=== PATIENT | male | born 1935 | race African-American/Black ===

== ENCOUNTER 2021-07-24 17:56 | Inpatient (IN) | payer MEDICARE, MEDICAID ==
[~2021-07-24] VITALS: Ht 188 cm; Wt 68.2 kg
[2021-07-24 20:07] LABS: HEMATOCRIT. 38.7 % (42.0-52.0); HEMOGLOBIN. 12.9 g/dL (14.0-18.0); MEAN CORPUSCULAR HEMOGLOBIN 33.8 pg (28.0-32.0); MEAN CORPUSCULAR VOLUME 100.8 fL (80.0-94.0); MEAN PLATELET VOLUME 9.9 fl (7.4-10.4); PLATELET 170 x1000/uL (130-400); RED BLOOD CELL COUNT 3.83 mill/uL (4.7-6.1); RED CELL DISTRIBUTION WIDTH 13.2 % (11.6-14.6)
[2021-07-24 20:08] LABS: CHLORIDE 102 mEq/L (98-107)
[2021-07-24 20:42] LABS: PLATELET ESTIMATE NORMAL
[2021-07-25] MEDS ORDERED: CEFTRIAXONE 1 G PREMIX 50 ML IV ONE (01:15)
[2021-07-25] MEDS ORDERED: MAGNESIUM/ALUMINUM HYDROXIDE/SIMETHICONE 30ML UDC PO PRN (03:15)
[2021-07-25] MEDS ORDERED: DOCUSATE SODIUM 100MG CAPSULE PO PRN (03:15)
[2021-07-25] MEDS ORDERED: ONDANSETRON HCL 4MG/2ML INJ IV PRN (03:15)
[2021-07-25] MEDS ORDERED: CLONIDINE 0.1MG TABLET PO PRN (03:15)
[2021-07-25] MEDS ORDERED: HYDROCODONE/ACETAMINOPHEN 5/325MG TABLET PO PRN (03:15)
[2021-07-25] MEDS ORDERED: NALOXONE HCL 0.4 MG/ML 1ML VIAL IV PRN (03:30)
[2021-07-25] MEDS: AMLODIPINE 10MG TABLET PO SCH ×2 (03:40→09:00)
[2021-07-25] MEDS: SODIUM CHLORIDE 0.45% 1,000 ML IV SCH ×2 (03:40→15:10)
[2021-07-25 09:00] VITALS: BP 128/89
[2021-07-25] MEDS: METOPROLOL TARTRATE 25MG TABLET PO SCH ×2 (09:00→22:11)
[2021-07-25] MEDS: TAMSULOSIN HCL 0.4MG SR CAPSULE PO SCH (09:45)
[2021-07-25 10:19] VITALS: BP 128/89
[2021-07-25 12:00] VITALS: BP 129/80
[2021-07-25] MEDS: FINASTERIDE 5MG TABLET PO SCH (15:05)
[2021-07-25 15:31] LABS: HEMOGLOBIN. 12.7 g/dL (14.0-18.0); MEAN CORPUSCULAR HEMOGLOBIN 32.9 pg (28.0-32.0); MEAN CORPUSCULAR VOLUME 100.8 fL (80.0-94.0); PLATELET 142 x1000/uL (130-400); RED BLOOD CELL COUNT 3.87 mill/uL (4.7-6.1)
[2021-07-25 16:00] VITALS: BP 117/77
[2021-07-25 16:00] LABS: PLATELET ESTIMATE NORMAL
[2021-07-25] MEDS ORDERED: DILTIAZEM HCL 5MG/ML 5ML VIAL IV NR (18:00)
[2021-07-25] MEDS ORDERED: DILTIAZEM HCL 30MG TABLET PO PRN (18:00)
[2021-07-25 20:00] VITALS: BP 113/73
[2021-07-26] VITALS (7 sets, daily range): BP systolic 98–122; BP diastolic 55–84
[2021-07-26] MEDS ORDERED: CEFTRIAXONE 1,000 MG in DEXTROSE 5% WATER 50 ML IV SCH
[2021-07-26] MEDS: ACETAMINOPHEN 325MG TABLET PO PRN (04:24)
[2021-07-26] MEDS: SODIUM CHLORIDE 0.45% 1,000 ML IV SCH (05:59)
[2021-07-26 06:20] LABS: HEMATOCRIT. 38.1 % (42.0-52.0); HEMOGLOBIN. 12.6 g/dL (14.0-18.0); MEAN CORPUSCULAR HEMOGLOBIN 33.8 pg (28.0-32.0); MEAN CORPUSCULAR VOLUME 102.6 fL (80.0-94.0); MEAN PLATELET VOLUME 10.5 fl (7.4-10.4); PLATELET 136 x1000/uL (130-400); RED BLOOD CELL COUNT 3.71 mill/uL (4.7-6.1); RED CELL DISTRIBUTION WIDTH 13.3 % (11.6-14.6)
[2021-07-26 06:27] LABS: CHLORIDE 101 mEq/L (98-107)
[2021-07-26] MEDS: AMLODIPINE 10MG TABLET PO SCH (09:00)
[2021-07-26] MEDS: METOPROLOL TARTRATE 25MG TABLET PO SCH (09:00)
[2021-07-26] MEDS: FINASTERIDE 5MG TABLET PO SCH (09:06)
[2021-07-26] MEDS: TAMSULOSIN HCL 0.4MG SR CAPSULE PO SCH (09:21)
[2021-07-26] MEDS ORDERED: SODIUM CHLORIDE 0.9% 500 ML IV ONE (09:45)
[2021-07-26] MEDS: SODIUM CHLORIDE 0.9% 1,000 ML IV SCH ×2 (09:51→20:09)
[2021-07-26] MEDS ORDERED: DIGOXIN 500MCG/2ML AMP IV NR (11:15)
[2021-07-26 15:56] LABS: PLATELET ESTIMATE NORMAL
[2021-07-26] MEDS: METOPROLOL TARTRATE 50MG TABLET PO SCH (22:09)
[2021-07-26] MEDS: CEFTRIAXONE 1,000 MG in DEXTROSE 5% WATER 50 ML IV SCH (22:31)
[2021-07-27] VITALS: BP 85/58
[2021-07-27 04:00] VITALS: BP 104/67
[2021-07-27] MEDS: SODIUM CHLORIDE 0.9% 1,000 ML IV SCH ×2 (05:38→16:06)
[2021-07-27 06:24] LABS: BASOPHILS % 0.2 % (0.0-2.0); EOSINOPHILS % 0.5 % (0.0-5.0); HEMATOCRIT. 34.5 % (42.0-52.0); HEMOGLOBIN. 11.9 g/dL (14.0-18.0); MEAN CORPUSCULAR HEMOGLOBIN 34.8 pg (28.0-32.0); MEAN CORPUSCULAR VOLUME 100.9 fL (80.0-94.0); MEAN PLATELET VOLUME 10.2 fl (7.4-10.4); MONOCYTES % 12.2 % (2.0-8.0); NEUTROPHILS % 76.1 % (40.0-76.0); PLATELET 125 x1000/uL (130-400); RED BLOOD CELL COUNT 3.42 mill/uL (4.7-6.1); RED CELL DISTRIBUTION WIDTH 12.7 % (11.6-14.6)
[2021-07-27 06:35] LABS: CHLORIDE 103 mEq/L (98-107)
[2021-07-27 06:42] LABS: PHOSPHORUS 1.6 mg/dL (2.5-4.9)
[2021-07-27 08:00] VITALS: BP 98/49
[2021-07-27] MEDS ORDERED: POTASSIUM CHLORIDE 20MEQ TABLET SR PO SCH (08:00)
[2021-07-27] MEDS: METOPROLOL TARTRATE 50MG TABLET PO SCH (09:00)
[2021-07-27] MEDS: TAMSULOSIN HCL 0.4MG SR CAPSULE PO SCH (09:09)
[2021-07-27] MEDS: FINASTERIDE 5MG TABLET PO SCH (09:09)
[2021-07-27] MEDS: POTASSIUM-SODIUM PHOSPHATE POWDER PACKET PO SCH ×2 (09:15→16:43)
[2021-07-27] MEDS ORDERED: SODIUM CHLORIDE 0.9% 500 ML IV ONE (09:45)
[2021-07-27] MEDS ORDERED: POTASSIUM PHOS,M-BASIC-D-BASIC 15 MMOL in DEXT 5% WATER 245 ML IV NR (12:30)
[2021-07-27] MEDS: VERAPAMIL HCL 80 MG TABLET PO SCH ×3 (14:00→21:35)
[2021-07-27 16:00] VITALS: BP 95/69
[2021-07-27] MEDS: ACETAMINOPHEN 325MG TABLET PO PRN (16:42)
[2021-07-27 20:00] VITALS: BP 104/64
[2021-07-27] MEDS: CEFTRIAXONE 1,000 MG in DEXTROSE 5% WATER 50 ML IV SCH (21:34)
[2021-07-28] VITALS: BP 102/66
[2021-07-28] MEDS: SODIUM CHLORIDE 0.9% 1,000 ML IV SCH (00:36)
[2021-07-28 04:00] VITALS: BP 116/68
[2021-07-28] MEDS: VERAPAMIL HCL 80 MG TABLET PO SCH (06:00)
[2021-07-28 06:37] LABS: BASOPHILS % 0.3 % (0.0-2.0); EOSINOPHILS % 2.6 % (0.0-5.0); HEMATOCRIT. 34.9 % (42.0-52.0); HEMOGLOBIN. 11.9 g/dL (14.0-18.0); LYMPHOCYTES % 20.8 % (20.0-50.0); MEAN CORPUSCULAR HEMOGLOBIN 34.6 pg (28.0-32.0); MEAN CORPUSCULAR VOLUME 101.6 fL (80.0-94.0); MEAN PLATELET VOLUME 10.4 fl (7.4-10.4); MONOCYTES % 13.6 % (2.0-8.0); NEUTROPHILS % 62.7 % (40.0-76.0); PLATELET 142 x1000/uL (130-400); RED BLOOD CELL COUNT 3.44 mill/uL (4.7-6.1); RED CELL DISTRIBUTION WIDTH 12.4 % (11.6-14.6)
[2021-07-28 07:17] LABS: CHLORIDE 105 mEq/L (98-107)
[2021-07-28 07:29] LABS: PHOSPHORUS 2.2 mg/dL (2.5-4.9)
[2021-07-28 08:00] VITALS: BP 97/70
[2021-07-28] MEDS: POTASSIUM-SODIUM PHOSPHATE POWDER PACKET PO SCH (09:48)
[2021-07-28] MEDS: FINASTERIDE 5MG TABLET PO SCH (09:48)
[2021-07-28] MEDS: TAMSULOSIN HCL 0.4MG SR CAPSULE PO SCH (09:48)
[2021-07-28] MEDS ORDERED: POTASSIUM CHLORIDE 20MEQ TABLET SR PO NR (10:15)
[2021-07-28] MEDS ORDERED: MAGNESIUM OXIDE 400MG TABLET PO SCH (10:15)
[2021-07-28 12:00] VITALS: BP 105/77
[2021-07-28] MEDS ORDERED: MIDODRINE HCL 2.5MG TABLET PO SCH (12:00)
[2021-07-28] MEDS ORDERED: POTASSIUM-SODIUM PHOSPHATE POWDER PACKET PO NR (14:00)
[2021-07-28 14:50] VITALS: BP 105/77
== END 2021-07-28 16:00 | disposition home health service (06) | DRG 501 ==
LOC: ER 17:56 → 8WST 07-25 02:41 → ENRESERV 07-25 07:16
PROVIDERS: ADMIT Hospitalist; ATTEND Hospitalist
DX: N40.1 Benign prostatic hyperplasia with lower urinary tract symptoms (principal); N17.0 Acute kidney failure with tubular necrosis; R65.11 Systemic inflammatory response syndrome (SIRS) of non-infectious origin with acute organ dysfunction; I95.9 Hypotension, unspecified; E44.0 Moderate protein-calorie malnutrition; I47.1 Supraventricular tachycardia; N13.30 Unspecified hydronephrosis; I48.0 Paroxysmal atrial fibrillation; N32.89 Other specified disorders of bladder; N13.8 Other obstructive and reflux uropathy; D64.9 Anemia, unspecified; R33.8 Other retention of urine; E78.5 Hyperlipidemia, unspecified; K57.30 Diverticulosis of large intestine without perforation or abscess without bleeding; I10 Essential (primary) hypertension; R73.9 Hyperglycemia, unspecified; R74.01 Elevation of levels of liver transaminase levels; R31.9 Hematuria, unspecified; Z82.49 Family history of ischemic heart disease and other diseases of the circulatory system; Z68.1 Body mass index [BMI] 19.9 or less, adult
CPT/HCPCS: 36415; 74176; 80053; 83036; 83735; 84100; 84443; 85025; 86850; 86900; 93306; 93970; 99291; J0696; J1160; J3490; J7030; J7040; J7060

== ENCOUNTER 2021-09-01 09:15 | Inpatient (IN) | payer MEDICARE, MEDICAID ==
[~2021-09-01] VITALS: Ht 188 cm; Wt 72.6 kg
[2021-09-01 14:09] LABS: CHLORIDE 84 mEq/L (98-107); HEMATOCRIT. 42.7 % (42.0-52.0); HEMOGLOBIN. 13.9 g/dL (14.0-18.0); MEAN CORPUSCULAR HEMOGLOBIN 32.6 pg (28.0-32.0); MEAN CORPUSCULAR VOLUME 99.9 fL (80.0-94.0); MEAN PLATELET VOLUME 10.8 fl (7.4-10.4); PLATELET 85 x1000/uL (130-400); RED BLOOD CELL COUNT 4.27 mill/uL (4.7-6.1); RED CELL DISTRIBUTION WIDTH 13.5 % (11.6-14.6)
[2021-09-01] MEDS ORDERED: CEFTRIAXONE 1 G PREMIX 50 ML IV ONE (15:30)
[2021-09-01] MEDS ORDERED: SODIUM CHLORIDE 0.9% 500 ML IV ONE (15:45)
[2021-09-01 16:42] LABS: BG BASE EXCESS -10.7 mmol/L (-2.0-2.0); BG CARBOXYHEMOGLOBIN 0.2 % (0.5-1.5); BG DEOXYHEMOGLOBIN 3.5 % (0.0-5.0); BG FRACTION INSPIRED OXYGEN 21; BG HCO3 ACT 12.5 mmol/L (22.0-26.0); BG METHEMOGLOBIN 0.4 % (0.0-1.5); BG OXYGEN SATURATION 96.5 % (92.0-98.5); BG OXYHEMOGLOBIN 95.9 % (94.0-97.0); BG PCO2 22.3 mmHg (35.0-45.0); BG PH 7.368 (7.350-7.450); BG PO2 92.9 mmHg (75.0-100.0); BG SAMPLE SITE RIGHT RADIAL; BG TOTAL HEMOGLOBIN 12.9 g/dL (12.0-18.0); BG VENT MODE ROOM AIR
[2021-09-01] MEDS ORDERED: SODIUM POLYSTYRENE SULFONATE 15 G/60 ML BOT PO ONE (16:45)
[2021-09-01] MEDS ORDERED: PIPERACILLIN/TAZOBACTAM 3.375GM/50ML PREMIX IV ONE (16:45)
[2021-09-01 17:10] LABS: CREATINE KINASE MB FRACTION 41.5 ng/mL (0.5-3.6)
[2021-09-01 17:15] LABS: CLARITY URINE TURBID (CLEAR); COLOR URINE DK YELLOW (YELLOW); KETONES URINE NEGATIVE (NEGATIVE); LEUKOCYTE ESTERASE URINE 3+ (NEGATIVE); NITRITE URINE NEGATIVE (NEGATIVE); OCCULT BLOOD URINE 3+ (NEGATIVE); PH URINE 5.5 (4.5-8.0); PROTEIN URINE 2+ (NEGATIVE); SPECIFIC GRAVITY URINE 1.011 (1.005-1.030); UROBILINOGEN URINE 0.2 E.U./dL (0.2-1.0)
[2021-09-01] MEDS: SODIUM CHLORIDE 0.9% 1,000 ML IV SCH (17:17)
[2021-09-01] MEDS ORDERED: VANCOMYCIN 1500MG in DEXTROSE 5% WATER 250ML IV NR (17:30)
[2021-09-01] MEDS ORDERED: NOREPINEPHRINE 8MG/250ML PMX 250 ML IV PRN (20:30)
[2021-09-01 23:36] LABS: PLATELET ESTIMATE DECREASED
[2021-09-02] MEDS: SODIUM CHLORIDE 0.9% 1,000 ML IV SCH ×3 (02:55→23:27)
[2021-09-02] MEDS: PHENYLEPHRINE 100 MG in DEXT 5% WATER 250 ML IV PRN ×2 (05:50→16:56)
[2021-09-02 06:51] LABS: BG CARBOXYHEMOGLOBIN 0.5 % (0.5-1.5); BG DEOXYHEMOGLOBIN 7.1 % (0.0-5.0); BG FRACTION INSPIRED OXYGEN 21; BG HCO3 ACT 18.2 mmol/L (22.0-26.0); BG METHEMOGLOBIN 0.4 % (0.0-1.5); BG OXYGEN SATURATION 92.8 % (92.0-98.5); BG PCO2 28.9 mmHg (35.0-45.0); BG PH 7.418 (7.350-7.450); BG PO2 70.7 mmHg (75.0-100.0); BG SAMPLE SITE LEFT RADIAL; BG TOTAL HEMOGLOBIN 12.5 g/dL (12.0-18.0); BG VENT MODE ROOM AIR
[2021-09-02] MEDS ORDERED: NOREPINEPHRINE 8 MG in DEXTROSE 5% WATER 250 ML IV PRN (08:00)
[2021-09-02] MEDS ORDERED: MIDODRINE HCL 5MG TABLET PO SCH (09:15)
[2021-09-02] MEDS ORDERED: DIGOXIN 500MCG/2ML AMP IV NR ×2 (09:15→12:00)
[2021-09-02 09:18] LABS: HEMATOCRIT. 34.7 % (42.0-52.0); HEMOGLOBIN. 11.6 g/dL (14.0-18.0); MEAN CORPUSCULAR HEMOGLOBIN 32.9 pg (28.0-32.0); MEAN CORPUSCULAR VOLUME 98.4 fL (80.0-94.0); MEAN PLATELET VOLUME 11.6 fl (7.4-10.4); PLATELET 61 x1000/uL (130-400); RED BLOOD CELL COUNT 3.52 mill/uL (4.7-6.1); RED CELL DISTRIBUTION WIDTH 13.4 % (11.6-14.6)
[2021-09-02 09:24] LABS: CHLORIDE 90 mEq/L (98-107)
[2021-09-02 09:29] LABS: HEMATOCRIT. 34.2 % (42.0-52.0); HEMOGLOBIN. 11.3 g/dL (14.0-18.0); MEAN CORPUSCULAR HEMOGLOBIN 32.4 pg (28.0-32.0); MEAN CORPUSCULAR VOLUME 98.1 fL (80.0-94.0); PLATELET 65 x1000/uL (130-400); RED BLOOD CELL COUNT 3.49 mill/uL (4.7-6.1); RED CELL DISTRIBUTION WIDTH 13.4 % (11.6-14.6)
[2021-09-02 09:32] LABS: PHOSPHORUS 7.6 mg/dL (2.5-4.9)
[2021-09-02 10:39] LABS: PHOSPHORUS 7.8 mg/dL (2.5-4.9)
[2021-09-02 10:41] LABS: NUCLEATED RED BLOOD CELLS 1 /100 WBC
[2021-09-02 10:43] LABS: INR 1.3; PROTHROMBIN TIME 13.6 sec (9.6-11.0)
[2021-09-02 10:44] LABS: PLATELET ESTIMATE DECREASED
[2021-09-02] MEDS: DILTIAZEM HCL 125 MG in DEXTROSE 5% WATER 125 ML IV PRN (10:50)
[2021-09-02] MEDS: CEFEPIME 1,000 MG in DEXTROSE 5% WATER 50 ML IV SCH (11:51)
[2021-09-02 14:32] LABS: BG BASE EXCESS -3.6 mmol/L (-2.0-2.0); BG CARBOXYHEMOGLOBIN 0.3 % (0.5-1.5); BG DEOXYHEMOGLOBIN 0.7 % (0.0-5.0); BG HCO3 ACT 19.6 mmol/L (22.0-26.0); BG METHEMOGLOBIN 0.4 % (0.0-1.5); BG OXYGEN SATURATION 99.3 % (92.0-98.5); BG OXYHEMOGLOBIN 98.6 % (94.0-97.0); BG PCO2 30.2 mmHg (35.0-45.0); BG PH 7.431 (7.350-7.450); BG PO2 252.7 mmHg (75.0-100.0); BG SAMPLE SITE RIGHT RADIAL; BG TOTAL HEMOGLOBIN 12.4 g/dL (12.0-18.0); BG VENT MODE MASK - NRB
[2021-09-02] MEDS: MIDODRINE HCL 5MG TABLET PO SCH ×2 (15:10→22:00)
[2021-09-02 15:51] LABS: PLATELET ESTIMATE DECREASED
[2021-09-02 16:40] LABS: HEPATITIS B SURFACE ANTIGEN NEGATIVE
[2021-09-02 17:55] LABS: SODIUM URINE RANDOM 17 mEq/L
[2021-09-03] VITALS (79 sets, daily range): BP systolic 95–145; BP diastolic 53–117
[2021-09-03] MEDS: DILTIAZEM HCL 125 MG in DEXTROSE 5% WATER 125 ML IV PRN ×3 (04:55→22:21)
[2021-09-03] MEDS: PHENYLEPHRINE 100 MG in DEXT 5% WATER 250 ML IV PRN ×2 (04:56→13:39)
[2021-09-03] MEDS ORDERED: ONDANSETRON HCL 4MG/2ML INJ IV PRN (06:00)
[2021-09-03] MEDS ORDERED: ACETAMINOPHEN 325MG TABLET PO PRN (06:00)
[2021-09-03] MEDS: MIDODRINE HCL 5MG TABLET PO SCH ×3 (06:22→21:48)
[2021-09-03 06:23] LABS: CHLORIDE 96 mEq/L (98-107)
[2021-09-03 06:31] LABS: PHOSPHORUS 7.1 mg/dL (2.5-4.9)
[2021-09-03 06:45] LABS: CREATINE KINASE 1311 IU/L (39-308)
[2021-09-03 07:27] LABS: HEMATOCRIT. 34.7 % (42.0-52.0); MEAN CORPUSCULAR HEMOGLOBIN 34.2 pg (28.0-32.0); MEAN CORPUSCULAR VOLUME 98.6 fL (80.0-94.0); MEAN PLATELET VOLUME 12.1 fl (7.4-10.4); RED BLOOD CELL COUNT 3.52 mill/uL (4.7-6.1); RED CELL DISTRIBUTION WIDTH 13.5 % (11.6-14.6)
[2021-09-03 07:57] LABS: PLATELET 45 x1000/uL (130-400)
[2021-09-03 08:02] LABS: D-DIMER > 35.20 mg/L FEU (<0.50)
[2021-09-03 08:04] LABS: FIBRINOGEN 861 mg/dL (200-400)
[2021-09-03] MEDS ORDERED: LIDOCAINE HCL 1% 20ML VIAL (Pyxis) INJ ONE (08:27)
[2021-09-03] MEDS: SODIUM CHLORIDE 0.9% 1,000 ML IV SCH ×2 (09:10→19:33)
[2021-09-03] MEDS: CEFEPIME 1,000 MG in DEXTROSE 5% WATER 50 ML IV SCH (09:10)
[2021-09-03] MEDS ORDERED: DIGOXIN 500MCG/2ML AMP IV SCH (12:30)
[2021-09-03] MEDS: DILTIAZEM HCL 30MG TABLET PO SCH ×3 (13:40→23:18)
[2021-09-03 13:46] LABS: PLATELET ESTIMATE MARKEDLY DECREASED
[2021-09-04] VITALS (87 sets, daily range): BP systolic 82–144; BP diastolic 49–86
[2021-09-04] MEDS: DILTIAZEM HCL 30MG TABLET PO SCH (05:25)
[2021-09-04] MEDS: MIDODRINE HCL 5MG TABLET PO SCH ×3 (05:25→21:26)
[2021-09-04] MEDS: SODIUM CHLORIDE 0.9% 1,000 ML IV SCH ×2 (05:26→16:12)
[2021-09-04 06:36] LABS: PHOSPHORUS 5.3 mg/dL (2.5-4.9)
[2021-09-04] MEDS: DILTIAZEM HCL 125 MG in DEXTROSE 5% WATER 125 ML IV PRN ×2 (07:17→15:26)
[2021-09-04] MEDS ORDERED: DIGOXIN 500MCG/2ML AMP IV NR (07:45)
[2021-09-04] MEDS: CEFEPIME 1,000 MG in DEXTROSE 5% WATER 50 ML IV SCH (08:51)
[2021-09-04] MEDS ORDERED: POTASSIUM CHLORIDE INJ 40 MEQ in DEXT 5% WATER 250 ML IV ONE (09:00)
[2021-09-04] MEDS: KCL 20MEQ/100ML PREMIX 100 ML IV SCH ×2 (09:40→13:34)
[2021-09-04 11:05] LABS: HEMATOCRIT. 35.3 % (42.0-52.0); HEMOGLOBIN. 11.5 g/dL (14.0-18.0); MEAN CORPUSCULAR HEMOGLOBIN 32.6 pg (28.0-32.0); MEAN CORPUSCULAR VOLUME 99.7 fL (80.0-94.0); RED BLOOD CELL COUNT 3.54 mill/uL (4.7-6.1); RED CELL DISTRIBUTION WIDTH 13.4 % (11.6-14.6)
[2021-09-04] MEDS ORDERED: METOPROLOL TARTRATE 5MG/5ML VIAL IV NR (11:08)
[2021-09-04] MEDS: METOPROLOL TARTRATE 25MG TABLET PO SCH ×3 (12:32→21:25)
[2021-09-04] MEDS ORDERED: VERAPAMIL HCL 40MG TABLET PO SCH (14:00)
[2021-09-04] MEDS: VERAPAMIL HCL 80 MG TABLET PO SCH ×2 (14:01→21:26)
[2021-09-04 16:02] LABS: PLATELET 29 x1000/uL (130-400); PLATELET ESTIMATE MARKEDLY DECREASED
[2021-09-05] VITALS (57 sets, daily range): BP systolic 99–148; BP diastolic 49–121
[2021-09-05] MEDS: DILTIAZEM HCL 125 MG in DEXTROSE 5% WATER 125 ML IV PRN ×3 (00:06→20:30)
[2021-09-05] MEDS: SODIUM CHLORIDE 0.9% 1,000 ML IV SCH ×3 (02:29→20:34)
[2021-09-05] MEDS: METOPROLOL TARTRATE 25MG TABLET PO SCH ×3 (05:39→17:34)
[2021-09-05] MEDS: MIDODRINE HCL 5MG TABLET PO SCH ×3 (05:39→17:34)
[2021-09-05] MEDS: VERAPAMIL HCL 80 MG TABLET PO SCH ×3 (05:40→22:17)
[2021-09-05 07:01] LABS: HEMATOCRIT. 38.2 % (42.0-52.0); HEMOGLOBIN. 12.8 g/dL (14.0-18.0); MEAN CORPUSCULAR HEMOGLOBIN 33.1 pg (28.0-32.0); MEAN PLATELET VOLUME 11.4 fl (7.4-10.4); RED BLOOD CELL COUNT 3.86 mill/uL (4.7-6.1); RED CELL DISTRIBUTION WIDTH 14.2 % (11.6-14.6)
[2021-09-05 07:04] LABS: PHOSPHORUS 4.4 mg/dL (2.5-4.9)
[2021-09-05 07:23] LABS: PLATELET 29 x1000/uL (130-400)
[2021-09-05] MEDS: CEFEPIME 1,000 MG in DEXTROSE 5% WATER 50 ML IV SCH (09:37)
[2021-09-05 11:46] LABS: PLATELET ESTIMATE MARKEDLY DECREASED
[2021-09-05] MEDS ORDERED: DIGOXIN 500MCG/2ML AMP IV NR (16:45)
[2021-09-05] MEDS: PHENYLEPHRINE 100 MG in DEXT 5% WATER 250 ML IV PRN (19:00)
[2021-09-06] VITALS (57 sets, daily range): BP systolic 92–135; BP diastolic 45–78
[2021-09-06] MEDS: MIDODRINE HCL 5MG TABLET PO SCH ×5 (00:10→23:50)
[2021-09-06] MEDS: METOPROLOL TARTRATE 25MG TABLET PO SCH ×5 (00:10→23:32)
[2021-09-06] MEDS: DILTIAZEM HCL 125 MG in DEXTROSE 5% WATER 125 ML IV PRN (04:00)
[2021-09-06] MEDS: VERAPAMIL HCL 80 MG TABLET PO SCH ×3 (06:34→22:00)
[2021-09-06] MEDS: SODIUM CHLORIDE 0.9% 1,000 ML IV SCH (06:36)
[2021-09-06 07:07] LABS: PHOSPHORUS 4.2 mg/dL (2.5-4.9)
[2021-09-06] MEDS: CEFEPIME 1,000 MG in DEXTROSE 5% WATER 50 ML IV SCH (09:08)
[2021-09-06 09:35] LABS: BG BASE EXCESS 1.1 mmol/L (-2.0-2.0); BG CARBOXYHEMOGLOBIN 0.3 % (0.5-1.5); BG FRACTION INSPIRED OXYGEN 28; BG HCO3 ACT 24.3 mmol/L (22.0-26.0); BG METHEMOGLOBIN 0.2 % (0.0-1.5); BG OXYHEMOGLOBIN 91.5 % (94.0-97.0); BG PCO2 33.5 mmHg (35.0-45.0); BG PH 7.478 (7.350-7.450); BG PO2 64.3 mmHg (75.0-100.0); BG SAMPLE SITE LEFT RADIAL; BG TOTAL HEMOGLOBIN 11.5 g/dL (12.0-18.0); BG VENT MODE NASAL CANNULA
[2021-09-06] MEDS: DEXTROSE 5% WATER 1,000 ML IV SCH ×2 (09:46→20:07)
[2021-09-06 13:37] LABS: HEMATOCRIT. 32.8 % (42.0-52.0); HEMOGLOBIN. 10.7 g/dL (14.0-18.0); MEAN CORPUSCULAR HEMOGLOBIN 32.6 pg (28.0-32.0); MEAN CORPUSCULAR VOLUME 99.7 fL (80.0-94.0); MEAN PLATELET VOLUME 12.3 fl (7.4-10.4); RED BLOOD CELL COUNT 3.29 mill/uL (4.7-6.1); RED CELL DISTRIBUTION WIDTH 14.1 % (11.6-14.6)
[2021-09-06 15:34] LABS: PLATELET 48 x1000/uL (130-400); PLATELET ESTIMATE MARKEDLY DECREASED
[2021-09-06] MEDS ORDERED: DILTIAZEM HCL 5MG/ML 5ML VIAL IV NR ×2 (18:45→23:13)
[2021-09-07] VITALS (92 sets, daily range): BP systolic 93–138; BP diastolic 37–116
[2021-09-07] MEDS: DILTIAZEM HCL 125 MG in DEXTROSE 5% WATER 125 ML IV PRN ×3 (02:12→21:48)
[2021-09-07] MEDS: DEXTROSE 5% WATER 1,000 ML IV SCH (02:46)
[2021-09-07] MEDS: METOPROLOL TARTRATE 25MG TABLET PO SCH ×3 (06:00→17:43)
[2021-09-07] MEDS: VERAPAMIL HCL 80 MG TABLET PO SCH ×3 (06:00→22:00)
[2021-09-07 06:07] LABS: HEMATOCRIT. 32.6 % (42.0-52.0); HEMOGLOBIN. 10.7 g/dL (14.0-18.0); MEAN CORPUSCULAR HEMOGLOBIN 32.7 pg (28.0-32.0); MEAN CORPUSCULAR VOLUME 99.4 fL (80.0-94.0); MEAN PLATELET VOLUME 12.9 fl (7.4-10.4); PLATELET 59 x1000/uL (130-400); RED BLOOD CELL COUNT 3.28 mill/uL (4.7-6.1); RED CELL DISTRIBUTION WIDTH 13.9 % (11.6-14.6)
[2021-09-07 06:16] LABS: PHOSPHORUS 3.9 mg/dL (2.5-4.9)
[2021-09-07] MEDS: MIDODRINE HCL 5MG TABLET PO SCH ×3 (06:29→17:44)
[2021-09-07] MEDS ORDERED: POTASSIUM CHLORIDE 20MEQ TABLET SR PO SCH (10:00)
[2021-09-07] MEDS ORDERED: CEFEPIME 1,000 MG in DEXTROSE 5% WATER 50 ML IV SCH ×2 (12:00→14:00)
[2021-09-07 13:47] LABS: ATYPICAL LYMPHOCYTES 1
[2021-09-07 13:48] LABS: PLATELET ESTIMATE DECREASED
[2021-09-08] VITALS (72 sets, daily range): BP systolic 73–130; BP diastolic 49–75
[2021-09-08] MEDS: METOPROLOL TARTRATE 25MG TABLET PO SCH ×4 (00:45→18:00)
[2021-09-08] MEDS: MIDODRINE HCL 5MG TABLET PO SCH ×4 (00:46→18:45)
[2021-09-08] MEDS: DEXTROSE 5% WATER 1,000 ML IV SCH ×2 (03:06→10:30)
[2021-09-08] MEDS: VERAPAMIL HCL 80 MG TABLET PO SCH ×3 (05:04→22:00)
[2021-09-08 06:19] LABS: HEMATOCRIT. 29.9 % (42.0-52.0); HEMOGLOBIN. 10.3 g/dL (14.0-18.0); MEAN CORPUSCULAR VOLUME 98.2 fL (80.0-94.0); PLATELET 76 x1000/uL (130-400); RED BLOOD CELL COUNT 3.04 mill/uL (4.7-6.1); RED CELL DISTRIBUTION WIDTH 14.1 % (11.6-14.6)
[2021-09-08 06:37] LABS: PHOSPHORUS 3.4 mg/dL (2.5-4.9)
[2021-09-08] MEDS: DILTIAZEM HCL 125 MG in DEXTROSE 5% WATER 125 ML IV PRN (07:49)
[2021-09-08] MEDS ORDERED: POTASSIUM CHLORIDE 20MEQ/PACKET PO NR (08:30)
[2021-09-08] MEDS ORDERED: DIGOXIN 500MCG/2ML AMP IV NR (11:45)
[2021-09-08] MEDS: CEFTRIAXONE 1,000 MG in DEXTROSE 5% WATER 50 ML IV SCH (13:59)
[2021-09-08 18:09] LABS: PLATELET ESTIMATE DECREASED
[2021-09-09] VITALS (33 sets, daily range): BP systolic 81–132; BP diastolic 43–72
[2021-09-09] MEDS: MIDODRINE HCL 5MG TABLET PO SCH ×4 (00:10→18:21)
[2021-09-09] MEDS: METOPROLOL TARTRATE 25MG TABLET PO SCH ×4 (06:00→18:00)
[2021-09-09] MEDS: VERAPAMIL HCL 80 MG TABLET PO SCH ×3 (06:00→22:00)
[2021-09-09 06:11] LABS: HEMATOCRIT. 29.9 % (42.0-52.0); HEMOGLOBIN. 9.6 g/dL (14.0-18.0); MEAN CORPUSCULAR HEMOGLOBIN 31.7 pg (28.0-32.0); MEAN CORPUSCULAR VOLUME 99.1 fL (80.0-94.0); MEAN PLATELET VOLUME 13.3 fl (7.4-10.4); PLATELET 94 x1000/uL (130-400); RED BLOOD CELL COUNT 3.02 mill/uL (4.7-6.1); RED CELL DISTRIBUTION WIDTH 14.5 % (11.6-14.6)
[2021-09-09] MEDS: DEXTROSE 5% WATER 1,000 ML IV SCH ×2 (06:29→14:38)
[2021-09-09 06:51] LABS: PHOSPHORUS 3.8 mg/dL (2.5-4.9)
[2021-09-09] MEDS: MULTIVITAMINS,THER W-MINERALS TABLET PO SCH (09:54)
[2021-09-09] MEDS: ENOXAPARIN 30MG/0.3ML SYR SUBCUT SCH (14:38)
[2021-09-09] MEDS: CEFTRIAXONE 1,000 MG in DEXTROSE 5% WATER 50 ML IV SCH (14:38)
[2021-09-09 16:33] LABS: PLATELET ESTIMATE DECREASED
[2021-09-10] VITALS (13 sets, daily range): BP systolic 91–119; BP diastolic 49–76
[2021-09-10] MEDS: METOPROLOL TARTRATE 25MG TABLET PO SCH ×4 (00:21→18:20)
[2021-09-10] MEDS: MIDODRINE HCL 5MG TABLET PO SCH ×4 (00:21→18:02)
[2021-09-10] MEDS: VERAPAMIL HCL 80 MG TABLET PO SCH ×3 (06:44→22:00)
[2021-09-10] MEDS: DEXTROSE 5% WATER 1,000 ML IV SCH ×2 (06:45→22:08)
[2021-09-10 07:31] LABS: PHOSPHORUS 3.6 mg/dL (2.5-4.9)
[2021-09-10 07:44] LABS: HEMATOCRIT. 26.6 % (42.0-52.0); HEMOGLOBIN. 8.9 g/dL (14.0-18.0); MEAN CORPUSCULAR HEMOGLOBIN 33.3 pg (28.0-32.0); MEAN CORPUSCULAR VOLUME 99.2 fL (80.0-94.0); MEAN PLATELET VOLUME 12.6 fl (7.4-10.4); PLATELET 110 x1000/uL (130-400); RED BLOOD CELL COUNT 2.68 mill/uL (4.7-6.1); RED CELL DISTRIBUTION WIDTH 14.6 % (11.6-14.6)
[2021-09-10] MEDS ORDERED: POTASSIUM CHLORIDE 20MEQ TABLET SR PO NR (08:15)
[2021-09-10] MEDS: MULTIVITAMINS,THER W-MINERALS TABLET PO SCH (08:44)
[2021-09-10] MEDS: CEFTRIAXONE 1,000 MG in DEXTROSE 5% WATER 50 ML IV SCH (14:31)
[2021-09-10] MEDS: ENOXAPARIN 30MG/0.3ML SYR SUBCUT SCH (14:38)
[2021-09-10 18:10] LABS: PLATELET ESTIMATE DECREASED
[2021-09-10] MEDS ORDERED: DILTIAZEM HCL 5MG/ML 5ML VIAL IV NR (19:15)
[2021-09-10] MEDS: DILTIAZEM HCL 125 MG in DEXT 5% WATER 100 ML IV SCH (19:43)
[2021-09-11] VITALS (15 sets, daily range): BP systolic 93–128; BP diastolic 52–74
[2021-09-11] MEDS: MIDODRINE HCL 5MG TABLET PO SCH ×4 (00:10→18:02)
[2021-09-11] MEDS: VERAPAMIL HCL 80 MG TABLET PO SCH ×3 (06:00→22:47)
[2021-09-11] MEDS: METOPROLOL TARTRATE 25MG TABLET PO SCH ×4 (06:00→18:03)
[2021-09-11] MEDS: DILTIAZEM HCL 125 MG in DEXT 5% WATER 100 ML IV SCH ×2 (06:01→23:05)
[2021-09-11 07:32] LABS: HEMATOCRIT. 29.7 % (42.0-52.0); HEMOGLOBIN. 9.7 g/dL (14.0-18.0); MEAN CORPUSCULAR HEMOGLOBIN 32.1 pg (28.0-32.0); MEAN CORPUSCULAR VOLUME 98.5 fL (80.0-94.0); MEAN PLATELET VOLUME 12.8 fl (7.4-10.4); PLATELET 125 x1000/uL (130-400); RED BLOOD CELL COUNT 3.01 mill/uL (4.7-6.1); RED CELL DISTRIBUTION WIDTH 14.4 % (11.6-14.6)
[2021-09-11 07:43] LABS: PHOSPHORUS 3.3 mg/dL (2.5-4.9)
[2021-09-11 08:53] LABS: BG BASE EXCESS -1.3 mmol/L (-2.0-2.0); BG CARBOXYHEMOGLOBIN 0.4 % (0.5-1.5); BG DEOXYHEMOGLOBIN 4.1 % (0.0-5.0); BG HCO3 ACT 22.3 mmol/L (22.0-26.0); BG METHEMOGLOBIN 0.4 % (0.0-1.5); BG OXYGEN SATURATION 95.9 % (92.0-98.5); BG OXYHEMOGLOBIN 95.1 % (94.0-97.0); BG PCO2 32.9 mmHg (35.0-45.0); BG PH 7.449 (7.350-7.450); BG PO2 81.4 mmHg (75.0-100.0); BG SAMPLE SITE RIGHT RADIAL; BG TOTAL HEMOGLOBIN 9.1 g/dL (12.0-18.0); BG VENT MODE NASAL CANNULA
[2021-09-11] MEDS: MULTIVITAMINS,THER W-MINERALS TABLET PO SCH (09:43)
[2021-09-11] MEDS: DEXTROSE 5% WATER 1,000 ML IV SCH (11:15)
[2021-09-11 11:21] LABS: PLATELET ESTIMATE SLIGHTLY DECREASED
[2021-09-11] MEDS ORDERED: DIGOXIN 500MCG/2ML AMP IV NR ×2 (12:39→18:00)
[2021-09-11] MEDS: CEFTRIAXONE 1,000 MG in DEXTROSE 5% WATER 50 ML IV SCH (13:58)
[2021-09-12] VITALS (14 sets, daily range): BP systolic 98–121; BP diastolic 51–76
[2021-09-12] MEDS: MIDODRINE HCL 5MG TABLET PO SCH ×4 (01:18→18:28)
[2021-09-12] MEDS: METOPROLOL TARTRATE 25MG TABLET PO SCH ×4 (01:18→18:00)
[2021-09-12] MEDS: DEXTROSE 5% WATER 1,000 ML IV SCH (01:19)
[2021-09-12] MEDS: VERAPAMIL HCL 80 MG TABLET PO SCH ×3 (06:00→22:00)
[2021-09-12 08:27] LABS: HEMATOCRIT. 28.6 % (42.0-52.0); HEMOGLOBIN. 9.3 g/dL (14.0-18.0); MEAN CORPUSCULAR HEMOGLOBIN 32.7 pg (28.0-32.0); MEAN CORPUSCULAR VOLUME 99.8 fL (80.0-94.0); MEAN PLATELET VOLUME 12.7 fl (7.4-10.4); PLATELET 146 x1000/uL (130-400); RED BLOOD CELL COUNT 2.86 mill/uL (4.7-6.1); RED CELL DISTRIBUTION WIDTH 14.5 % (11.6-14.6)
[2021-09-12 08:58] LABS: PHOSPHORUS 2.7 mg/dL (2.5-4.9)
[2021-09-12] MEDS: MULTIVITAMINS,THER W-MINERALS TABLET PO SCH (09:05)
[2021-09-12 09:11] LABS: DIGOXIN 1.4 ng/mL (0.9-2.0)
[2021-09-12] MEDS ORDERED: DOCUSATE SODIUM 100MG CAPSULE PO NR (11:15)
[2021-09-12] MEDS: CEFTRIAXONE 1,000 MG in DEXTROSE 5% WATER 50 ML IV SCH (14:15)
[2021-09-12] MEDS ORDERED: POLYETHYLENE GLYCOL 3350 (17GM) 1 DOSE PACK PO PRN (15:00)
[2021-09-12 15:27] LABS: PLATELET ESTIMATE NORMAL
[2021-09-12] MEDS: DIGOXIN 500MCG/2ML AMP IV SCH (18:28)
[2021-09-13] VITALS (14 sets, daily range): BP systolic 97–128; BP diastolic 40–75
[2021-09-13] MEDS: METOPROLOL TARTRATE 25MG TABLET PO SCH ×4 (00:20→19:08)
[2021-09-13] MEDS: MIDODRINE HCL 5MG TABLET PO SCH ×4 (00:20→19:09)
[2021-09-13] MEDS: VERAPAMIL HCL 80 MG TABLET PO SCH ×3 (06:00→21:29)
[2021-09-13 07:33] LABS: HEMATOCRIT. 29.3 % (42.0-52.0); HEMOGLOBIN. 9.5 g/dL (14.0-18.0); MEAN CORPUSCULAR HEMOGLOBIN 31.9 pg (28.0-32.0); MEAN CORPUSCULAR VOLUME 98.6 fL (80.0-94.0); MEAN PLATELET VOLUME 12.4 fl (7.4-10.4); PLATELET 199 x1000/uL (130-400); RED BLOOD CELL COUNT 2.97 mill/uL (4.7-6.1); RED CELL DISTRIBUTION WIDTH 14.5 % (11.6-14.6)
[2021-09-13 07:45] LABS: PHOSPHORUS 3.4 mg/dL (2.5-4.9)
[2021-09-13 08:05] LABS: DIGOXIN 1.6 ng/mL (0.9-2.0)
[2021-09-13] MEDS: MULTIVITAMINS,THER W-MINERALS TABLET PO SCH (08:49)
[2021-09-13] MEDS ORDERED: POTASSIUM CHLORIDE 20MEQ/PACKET PO SCH (12:45)
[2021-09-13 13:11] LABS: PLATELET ESTIMATE NORMAL
[2021-09-13] MEDS: CEFTRIAXONE 1,000 MG in DEXTROSE 5% WATER 50 ML IV SCH (15:13)
[2021-09-13] MEDS: DIGOXIN 500MCG/2ML AMP IV SCH (19:07)
[2021-09-14] VITALS (16 sets, daily range): BP systolic 101–123; BP diastolic 50–71
[2021-09-14] MEDS: MIDODRINE HCL 5MG TABLET PO SCH ×5 (00:24→22:55)
[2021-09-14] MEDS: METOPROLOL TARTRATE 25MG TABLET PO SCH ×5 (05:42→22:54)
[2021-09-14] MEDS: MULTIVITAMINS,THER W-MINERALS TABLET PO SCH (08:12)
[2021-09-14] MEDS: VERAPAMIL HCL 80 MG TABLET PO SCH ×3 (08:13→22:54)
[2021-09-14] MEDS: IPRATROPIUM BROMIDE (0.02%) 0.5MG/2.5ML NEB HHN PRN ×2 (10:20→12:37)
[2021-09-14] MEDS ORDERED: CEFEPIME 1,000 MG in DEXTROSE 5% WATER 50 ML IV SCH (12:00)
[2021-09-14] MEDS: ACETYLCYSTEINE 200MG/ML 20% VIAL 4ML INH SCH (12:37)
[2021-09-14] MEDS: CEFTRIAXONE 1,000 MG in DEXTROSE 5% WATER 50 ML IV SCH (14:42)
[2021-09-14] MEDS: DIGOXIN 500MCG/2ML AMP IV SCH (17:50)
[2021-09-15] VITALS (13 sets, daily range): BP systolic 99–118; BP diastolic 48–73
[2021-09-15] MEDS: MIDODRINE HCL 5MG TABLET PO SCH ×3 (06:13→18:06)
[2021-09-15] MEDS: METOPROLOL TARTRATE 25MG TABLET PO SCH ×3 (06:13→18:06)
[2021-09-15] MEDS: VERAPAMIL HCL 80 MG TABLET PO SCH ×3 (06:13→22:03)
[2021-09-15 07:08] LABS: HEMATOCRIT. 26.6 % (42.0-52.0); HEMOGLOBIN. 8.7 g/dL (14.0-18.0); MEAN CORPUSCULAR HEMOGLOBIN 32.3 pg (28.0-32.0); MEAN CORPUSCULAR VOLUME 99.5 fL (80.0-94.0); MEAN PLATELET VOLUME 11.2 fl (7.4-10.4); PLATELET 203 x1000/uL (130-400); RED BLOOD CELL COUNT 2.68 mill/uL (4.7-6.1); RED CELL DISTRIBUTION WIDTH 14.9 % (11.6-14.6)
[2021-09-15 08:22] LABS: DIGOXIN 1.9 ng/mL (0.9-2.0)
[2021-09-15] MEDS: MULTIVITAMINS,THER W-MINERALS TABLET PO SCH (08:33)
[2021-09-15] MEDS: ACETYLCYSTEINE 200MG/ML 20% VIAL 4ML INH SCH ×3 (09:03→22:10)
[2021-09-15] MEDS: IPRATROPIUM BROMIDE (0.02%) 0.5MG/2.5ML NEB HHN PRN ×4 (09:35→22:10)
[2021-09-15 13:31] LABS: PLATELET ESTIMATE NORMAL
[2021-09-15 16:04] LABS: BG BASE EXCESS 2.4 mmol/L (-2.0-2.0); BG CARBOXYHEMOGLOBIN 0.2 % (0.5-1.5); BG DEOXYHEMOGLOBIN 13.5 % (0.0-5.0); BG FRACTION INSPIRED OXYGEN 21; BG HCO3 ACT 26.1 mmol/L (22.0-26.0); BG METHEMOGLOBIN 0.4 % (0.0-1.5); BG OXYGEN SATURATION 86.4 % (92.0-98.5); BG OXYHEMOGLOBIN 85.9 % (94.0-97.0); BG PCO2 36.7 mmHg (35.0-45.0); BG PO2 52.7 mmHg (75.0-100.0); BG SAMPLE SITE LEFT RADIAL; BG TOTAL HEMOGLOBIN 9.2 g/dL (12.0-18.0); BG VENT MODE ROOM AIR
[2021-09-15] MEDS: CEFTRIAXONE 1,000 MG in DEXTROSE 5% WATER 50 ML IV SCH (16:35)
[2021-09-15] MEDS: DIGOXIN 500MCG/2ML AMP IV SCH (18:00)
[2021-09-16] VITALS (13 sets, daily range): BP systolic 100–122; BP diastolic 52–69
[2021-09-16] MEDS: MIDODRINE HCL 5MG TABLET PO SCH ×4 (00:47→17:02)
[2021-09-16] MEDS: METOPROLOL TARTRATE 25MG TABLET PO SCH ×4 (00:47→17:01)
[2021-09-16] MEDS: VERAPAMIL HCL 80 MG TABLET PO SCH ×3 (06:52→21:39)
[2021-09-16 07:45] LABS: HEMATOCRIT. 25.7 % (42.0-52.0); HEMOGLOBIN. 8.7 g/dL (14.0-18.0); MEAN CORPUSCULAR HEMOGLOBIN 33.1 pg (28.0-32.0); MEAN CORPUSCULAR VOLUME 97.1 fL (80.0-94.0); MEAN PLATELET VOLUME 11.1 fl (7.4-10.4); PLATELET 201 x1000/uL (130-400); RED BLOOD CELL COUNT 2.64 mill/uL (4.7-6.1); RED CELL DISTRIBUTION WIDTH 14.9 % (11.6-14.6)
[2021-09-16] MEDS: MULTIVITAMINS,THER W-MINERALS TABLET PO SCH (08:00)
[2021-09-16 08:22] LABS: DIGOXIN 1.7 ng/mL (0.9-2.0)
[2021-09-16] MEDS: ACETYLCYSTEINE 200MG/ML 20% VIAL 4ML INH SCH ×3 (09:03→21:42)
[2021-09-16] MEDS: ASPIRIN 325MG EC TABLET PO SCH (13:25)
[2021-09-16] MEDS: DIGOXIN 500MCG/2ML AMP IV SCH (17:01)
[2021-09-16 20:10] LABS: PLATELET ESTIMATE NORMAL
[2021-09-16] MEDS: IPRATROPIUM BROMIDE (0.02%) 0.5MG/2.5ML NEB HHN PRN (21:41)
[2021-09-17] VITALS (15 sets, daily range): BP systolic 96–124; BP diastolic 50–68
[2021-09-17] MEDS: MIDODRINE HCL 5MG TABLET PO SCH ×4 (00:11→17:02)
[2021-09-17] MEDS: METOPROLOL TARTRATE 25MG TABLET PO SCH ×4 (00:11→17:02)
[2021-09-17] MEDS: VERAPAMIL HCL 80 MG TABLET PO SCH ×3 (05:54→22:00)
[2021-09-17 07:46] LABS: HEMATOCRIT. 24.1 % (42.0-52.0); HEMOGLOBIN. 8.1 g/dL (14.0-18.0); MEAN CORPUSCULAR HEMOGLOBIN 32.5 pg (28.0-32.0); MEAN CORPUSCULAR VOLUME 96.6 fL (80.0-94.0); MEAN PLATELET VOLUME 10.9 fl (7.4-10.4); PLATELET 245 x1000/uL (130-400); RED BLOOD CELL COUNT 2.49 mill/uL (4.7-6.1); RED CELL DISTRIBUTION WIDTH 14.6 % (11.6-14.6)
[2021-09-17 07:52] LABS: PHOSPHORUS 3.2 mg/dL (2.5-4.9)
[2021-09-17 08:06] LABS: DIGOXIN 1.7 ng/mL (0.9-2.0)
[2021-09-17] MEDS: ASPIRIN 325MG EC TABLET PO SCH (08:32)
[2021-09-17] MEDS: MULTIVITAMINS,THER W-MINERALS TABLET PO SCH (08:32)
[2021-09-17] MEDS: ACETYLCYSTEINE 200MG/ML 20% VIAL 4ML INH SCH ×2 (10:08→15:21)
[2021-09-17] MEDS: IPRATROPIUM BROMIDE (0.02%) 0.5MG/2.5ML NEB HHN PRN ×2 (10:08→15:21)
[2021-09-17] MEDS ORDERED: LACTULOSE 20G/30ML UDC PO SCH (10:45)
[2021-09-17] MEDS: ENOXAPARIN 30MG/0.3ML SYR SUBCUT SCH (13:39)
[2021-09-17] MEDS: DIGOXIN 500MCG/2ML AMP IV SCH (17:01)
[2021-09-17 17:05] LABS: PLATELET ESTIMATE NORMAL
[2021-09-18] VITALS (17 sets, daily range): BP systolic 98–119; BP diastolic 42–75
[2021-09-18] MEDS: METOPROLOL TARTRATE 25MG TABLET PO SCH ×4 (00:36→17:12)
[2021-09-18] MEDS: MIDODRINE HCL 5MG TABLET PO SCH ×4 (00:36→17:13)
[2021-09-18] MEDS: IPRATROPIUM BROMIDE (0.02%) 0.5MG/2.5ML NEB HHN PRN ×3 (01:39→16:51)
[2021-09-18] MEDS: ACETYLCYSTEINE 200MG/ML 20% VIAL 4ML INH SCH ×3 (01:39→16:50)
[2021-09-18] MEDS: VERAPAMIL HCL 80 MG TABLET PO SCH ×3 (06:53→21:46)
[2021-09-18 07:35] LABS: HEMATOCRIT. 25.1 % (42.0-52.0); HEMOGLOBIN. 8.5 g/dL (14.0-18.0); MEAN CORPUSCULAR HEMOGLOBIN 32.5 pg (28.0-32.0); MEAN CORPUSCULAR VOLUME 96.3 fL (80.0-94.0); MEAN PLATELET VOLUME 10.4 fl (7.4-10.4); PLATELET 256 x1000/uL (130-400); RED CELL DISTRIBUTION WIDTH 14.9 % (11.6-14.6)
[2021-09-18 07:59] LABS: PHOSPHORUS 3.6 mg/dL (2.5-4.9)
[2021-09-18] MEDS: ASPIRIN 325MG EC TABLET PO SCH (08:07)
[2021-09-18] MEDS: MULTIVITAMINS,THER W-MINERALS TABLET PO SCH (08:07)
[2021-09-18 12:09] LABS: PLATELET ESTIMATE NORMAL
[2021-09-18] MEDS: ENOXAPARIN 30MG/0.3ML SYR SUBCUT SCH (13:21)
[2021-09-18] MEDS: DIGOXIN 500MCG/2ML AMP IV SCH (17:13)
[2021-09-18] MEDS ORDERED: TAMS-11 MT (20:56)
[2021-09-18] MEDS ORDERED: FINA1TAB18 PO (20:56)
[2021-09-19] VITALS (16 sets, daily range): BP systolic 94–121; BP diastolic 51–72
[2021-09-19] MEDS: METOPROLOL TARTRATE 25MG TABLET PO SCH ×4 (01:07→18:47)
[2021-09-19] MEDS: MIDODRINE HCL 5MG TABLET PO SCH ×4 (01:07→18:46)
[2021-09-19] MEDS: ACETYLCYSTEINE 200MG/ML 20% VIAL 4ML INH SCH ×2 (05:21→11:50)
[2021-09-19] MEDS: IPRATROPIUM BROMIDE (0.02%) 0.5MG/2.5ML NEB HHN PRN (05:21)
[2021-09-19] MEDS: VERAPAMIL HCL 80 MG TABLET PO SCH ×3 (05:39→21:58)
[2021-09-19] MEDS: ASPIRIN 325MG EC TABLET PO SCH (09:05)
[2021-09-19] MEDS: MULTIVITAMINS,THER W-MINERALS TABLET PO SCH (09:05)
[2021-09-19] MEDS ORDERED: DIGO125T80 MT (10:16)
[2021-09-19] MEDS ORDERED: MIDO10TA MT (10:16)
[2021-09-19] MEDS ORDERED: VERA80TA7 PO (10:16)
[2021-09-19] MEDS ORDERED: ASPI-867 PO (10:16)
[2021-09-19] MEDS ORDERED: LEVO250T58 MT (10:16)
[2021-09-19] MEDS ORDERED: ALBU18HF2 IH (10:16)
[2021-09-19] MEDS ORDERED: CEFTRIAXONE 1 G PREMIX 50 ML IV SCH (10:30)
[2021-09-19 11:29] LABS: HEMOGLOBIN. 8.5 g/dL (14.0-18.0); MEAN CORPUSCULAR HEMOGLOBIN 31.8 pg (28.0-32.0); MEAN CORPUSCULAR VOLUME 96.7 fL (80.0-94.0); PLATELET 302 x1000/uL (130-400); RED BLOOD CELL COUNT 2.68 mill/uL (4.7-6.1)
[2021-09-19 11:41] LABS: PHOSPHORUS 3.5 mg/dL (2.5-4.9)
[2021-09-19] MEDS ORDERED: CEFTRIAXONE 1,000 MG in DEXTROSE 5% WATER 50 ML IV SCH (12:00)
[2021-09-19 12:34] LABS: PLATELET ESTIMATE NORMAL
[2021-09-19] MEDS: ENOXAPARIN 30MG/0.3ML SYR SUBCUT SCH (13:22)
[2021-09-20] MEDS: METOPROLOL TARTRATE 25MG TABLET PO SCH
[2021-09-20] MEDS: MIDODRINE HCL 5MG TABLET PO SCH
== END 2021-09-20 01:45 | disposition home health service (06) | DRG 720 ==
LOC: ER 09:15 → MICUSO 16:02 → EDBEDREQSVC 19:16 → CVICU 09-03 02:46 → 3WST 09-09 08:02
PROVIDERS: ADMIT Internal Medicine; ATTEND Internal Medicine
PROC: 02HV33Z Insertion of Infusion Device into Superior Vena Cava, Percutaneous Approach (ICD-10-PCS; principal; 2021-09-02)
PROC: B548ZZA Ultrasonography of Superior Vena Cava, Guidance (ICD-10-PCS; 2021-09-02)
PROC: 02HV33Z Insertion of Infusion Device into Superior Vena Cava, Percutaneous Approach (ICD-10-PCS; 2021-09-03)
PROC: B548ZZA Ultrasonography of Superior Vena Cava, Guidance (ICD-10-PCS; 2021-09-03)
DX: A41.51 Sepsis due to Escherichia coli [E. coli] (principal); N17.0 Acute kidney failure with tubular necrosis; R65.21 Severe sepsis with septic shock; I21.4 Non-ST elevation (NSTEMI) myocardial infarction; E43 Unspecified severe protein-calorie malnutrition; D69.6 Thrombocytopenia, unspecified; D68.9 Coagulation defect, unspecified; E87.1 Hypo-osmolality and hyponatremia; I47.1 Supraventricular tachycardia; I13.0 Hypertensive heart and chronic kidney disease with heart failure and stage 1 through stage 4 chronic kidney disease, or unspecified chronic kidney disease; I50.22 Chronic systolic (congestive) heart failure; E87.2 Acidosis; M62.82 Rhabdomyolysis; E87.8 Other disorders of electrolyte and fluid balance, not elsewhere classified; N39.0 Urinary tract infection, site not specified; D64.9 Anemia, unspecified; E87.5 Hyperkalemia; I48.0 Paroxysmal atrial fibrillation; K52.9 Noninfective gastroenteritis and colitis, unspecified; K76.89 Other specified diseases of liver; Z20.822 Contact with and (suspected) exposure to COVID-19; N40.1 Benign prostatic hyperplasia with lower urinary tract symptoms; R18.8 Other ascites; E86.1 Hypovolemia; N12 Tubulo-interstitial nephritis, not specified as acute or chronic; N13.8 Other obstructive and reflux uropathy; E87.6 Hypokalemia; N32.89 Other specified disorders of bladder; N18.9 Chronic kidney disease, unspecified; Z68.20 Body mass index [BMI] 20.0-20.9, adult; Z79.899 Other long term (current) drug therapy; Z87.448 Personal history of other diseases of urinary system; Z82.49 Family history of ischemic heart disease and other diseases of the circulatory system
CPT/HCPCS: 36415; 36556; 36600; 71045; 74176; 76700; 76937; 80048; 80053; 80162; 81003; 82140; 82270; 82375; 82533; 82550; 82553; 82805; 82962; 83605; 83735; 83880; 83935; 84100; 84145; 84300; 84443; 84484; 85025; 85379; 85384; 86705; 86709; 86803; 87070; 87077; 87186; 87340; 87426; 93005; 93306; 94640; 97110; 97162; 97166; 97530; 97535; 99291; C1725; C1752; J0692; J0696; J1160; J1650; J2370; J2405; J2543; J3370; J3480; J3490; J7040; J7060; J7070; J7608; A4315